=== PATIENT | male | born 1975 | race African-American/Black ===

== ENCOUNTER 2024-12-26 01:21 | Emergency (ER) | payer MEDICAID, SELFPAY ==
--- NOTE | 2024-12-26 01:55 | XR_ITS ---
Examination: Testicular sonography complete Technique: Grayscale sonographic images testes, assessment arterial inflow venous outflow Doppler spectral analysis carful analysis Exam date and time: December 26, 2024 0304 hrs. Indications: Palpable lump in the testicles beginning 3 days ago history bilateral testicular swelling Findings: Right testis 3.5 cm Epididymis 1.3 cm Arterial flow testicle. No testicular mass Mild hydrocele Left testis 4.0 cm Epididymis 1.4 cm Arterial flow to the testicle. 5 mm left epididymal cyst. No testicular mass Mild hydrocele Impression: No testicular torsion or testicular mass Small benign left epididymal cyst Bilateral mild hydroceles
--- NOTE | 2024-12-26 01:56 | PD.EDRME ---
Rapid Medical Screening Exam RME Arrival date/time: 12/26/24 01:21 49-year-old male past medical history of scrotal abscess presents emergency department complaining of pain and edema to scrotum that started 2 days ago. Patient reports sees urologist outpatient and is always prescribed Levaquin. Chief Complaint: Skin/Abscess/Foreign Body Time Seen by Provider: 12/26/24 01:22 Vital signs reviewed by provider: Yes
[2024-12-26 02:00] VITALS: BP 130/89; PULSE 106; RESP 18; TEMP 36.6; O2SAT 96
[2024-12-26 02:25] LABS: Basophils % (Auto) 0 % (0-2.5); Eosinophils # (Auto) 0.1 Thou/mm3 (0.0-0.5); Eosinophils % (Auto) 1 % (0-10); Hematocrit 45.1 % (41.0-53.0); Hemoglobin 15.6 g/dL (13.5-16.0); Immature Granulocytes % (Auto) 0 % (0-0); Immature Granulocytes Auto 0.05 Thou/mm3 (0.00-0.00); Lymphocytes # (Auto) 2.2 Thou/mm3 (1.0-4.8); Lymphocytes % (Auto) 15 % (10-50); Mean Corpuscular HGB Conc 34.6 g/dl (31.0-37.0); Mean Corpuscular Hemoglobin 32.9 pg (25.0-35.0); Mean Corpuscular Volume 95 fL (80-100); Monocytes % (Auto) 7 % (0-12); Neutrophils # (Auto) 11.3 Thou/mm3 (1.8-7.7); Neutrophils % (Auto) 77 % (37-80); Nucleated Red Blood Cell % 0 /100 WBC (0); Platelet Count 173 Thou/mm3 (140-440); RDW Standard Deviation 46.5 fL (35.1-43.9); Red Blood Count 4.74 Miln/mm3 (4.50-5.90); White Blood Count 14.7 Thou/mm3 (3.8-10.6)
[2024-12-26 02:34] LABS: Collection Type, Urine Clean Catch
[2024-12-26 02:52] LABS: Bacteria,Urine Rare; Bilirubin,Urine Negative (Negative); Blood,Urine Negative (Negative); Clarity,Urine Clear (Clear/Hazy); Color,Urine Yellow (Lt Yel-Yel); Glucose, Urine Negative (Negative); Hyaline Casts,Urine < 1 /hpf (0-1); Ketones,Urine Trace (Negative); Leukocyte Esterase,Urine Positive (Negative); Nitrite,Urine Negative (Negative); Protein,Urine Trace (Neg - Trace); RBC,Urine 4 /hpf (0-3); Specific Gravity,Urine 1.033 (1.001-1.035); Squamous Epithelial Cell,Urine 2 /hpf (0-5); Urobilinogen,Urine Negative mg/dL (0.0-1.0); WBC,Urine 41 /hpf (0-5)
[2024-12-26 02:53] LABS: Culture Indicated,Urine Yes
[2024-12-26 03:12] LABS: Alanine Aminotransferase 17 U/L (10-49); Albumin, Serum 4.3 gm/dL (3.5-5.0); Albumin/Globulin Ratio 1.3 (1.2-2.2); Alkaline Phosphatase 97 U/L (46-116); Anion Gap 6 (7-16); Aspartate Amino Transferase 20 U/L (0-34); BUN/Creatinine Ratio 13 Ratio (12-20); Bilirubin,Total 0.9 mg/dL (0.3-1.2); Blood Urea Nitrogen 16 mg/dL (9-23); Calcium 9.8 mg/dL (8.3-10.6); Calcium (Corrected) 9.8 mg/dL (8.5-10.1); Chloride 104 mMol/L (98-107); Creatinine (Component) 1.2 mg/dL (0.6-1.3); Globulin 3.4 gm/dL (2.3-3.5); Glucose 107 mg/dL (74-106); Osmolality,Calculated 275 (275-295); Potassium 3.8 mMol/L (3.4-5.1); Sodium 137 mMol/L (136-145); Total Protein 7.7 gm/dL (5.7-8.2); eGFR > 60 See Note
[2024-12-26 03:19] LABS: Procalcitonin 0.09 ng/ml (0.0-0.49)
--- NOTE | 2024-12-26 03:29 | PC.NURSE ---
Pt to room 7 at this time from lobby; assumed care of pt.
--- NOTE | 2024-12-26 03:32 | PC.NURSE ---
Dr. Meek at the bedside.
--- NOTE | 2024-12-26 03:43 | PD.EDSKIN ---
ED Skin Abcess FB-RME/HPI General Chief complaint: Skin/Abscess/Foreign Body Stated complaint: POSSIBLE ABSCESS Time Seen by Provider: 12/26/24 01:22 Arrival date/time: 12/26/24 01:21 RME / HPI RME / HPI narrative: 12/26/24 01:21 49-year-old male past medical history of scrotal abscess presents emergency department complaining of pain and edema to scrotum that started 2 days ago. Patient reports sees urologist outpatient and is always prescribed Levaquin. Dr. Meek?s Main ED Evaluation: 49yo male presents to the ED for complaints of pain and swelling to his scrotum. Patient states he started having pain to his scrotum yesterday, reporting when he woke up today, he noticed swelling to his testicular area, so he came in for evaluation. Patient currently rates his pain an 8 out of 10 in severity. Patient states he has a history of scrotal abscesses in the past and is always prescribed Levaquin. He denies any fever, chills or any other associated symptoms. Related Data Previous Rx's ?Medication ?Instructions ?Recorded acetaminophen 300 mg-codeine 30 mg 1 tab PO BID PRN pain #10 tabs 10/11/23 tablet amoxicillin 500 mg-potassium 1 tab PO BID #14 tabs 10/11/23 clavulanate 125 mg tablet (Augmentin) clindamycin HCl 300 mg capsule 300 mg PO TID #14 caps 10/11/23 hydrocodone 5 mg-acetaminophen 325 1 tab PO Q6H PRN pain #14 tabs 03/02/24 mg tablet hydrocodone 5 mg-acetaminophen 325 1 tab PO Q6H PRN pain #14 tabs 03/02/24 mg tablet hydrocodone 5 mg-acetaminophen 325 1 tab PO TID PRN Pain, Moderate 03/02/24 mg tablet #14 tabs ibuprofen 600 mg tablet 600 mg PO Q6H PRN pain #30 tabs 03/02/24 hydrocodone 5 mg-acetaminophen 325 1 tab PO Q6H PRN pain #14 tabs 12/26/24 mg tablet ibuprofen 600 mg tablet 600 mg PO Q6H PRN pain 5 days #20 12/26/24 tabs levofloxacin 750 mg tablet 750 mg PO QDAY Cellulitis 10 days 12/26/24 #10 tabs Allergies Allergy/AdvReac Type Severity Reaction Status Date / Time No Known Allergies Allergy Verified 12/26/24 01:36 Review of Systems Review of Systems Systems Reviewed: All systems reviewed, normal except as documented Past Medical History Past Medical History NEUROLOGIC: Positive Cerebrovascular Accident and Transient Ischemic Attacks (TIA); Negative Neurological Disorders or Seizures CARDIAC: Negative Cardiac Disorders or Congestive Heart Failure RESPIRATORY: Positive Asthma; Negative Chronic Obstructive Pulmonary Disease (COPD) GASTROINTESTINAL: Positive Gastrointestinal Disorders and Gall Bladder Disease GENITOURINARY: Negative Genitourinary Disorders or Renal Disease MUSCULOSKELETAL: Negative Musculoskeletal Disorders ENDOCRINE: Negative Endocrine Disorders, Diabetes Mellitus Type 1 or Diabetes Mellitus Type 2 HEMATOLOGIC: Negative Blood Disorders or Sickle Cell Disease OTHER HISTORY: Negative Hospitalization, Falls, Blood Transfusions, Blood Transfusion Reaction, Anesthesia Reactions or Cancer Surgical History SURGICAL: Negative Ear Surgery, Abdominal Surgery or Nephrectomy Social History SMOKING STATUS: Current every day smoker SECOND HAND EXPOSURE: No SUBSTANCE USE: marijuana ED Exam Narrative Physical exam: GENERAL APPEARANCE: alert and oriented x 4, well-developed, well-nourished, no acute distress VITALS: All vitals were reviewed and the pulse ox is 96% on room air, which is normal according to my interpretation. HEENT: Normocephalic, atraumatic; pupils equal, round, reactive to light; EOMI; mucous membranes pink, moist; oropharynx clear NECK: Supple LUNGS: CTABL; no wheezes, no rales, no rhonchi HEART: Regular rate, regular rhythm; normal S1, S2; no murmurs ABDOMEN: non distended; normal BS; soft, no tenderness, no guarding, no rebound; no masses, no organomegaly, no hernia BACK: no CVA tenderness : Cigar Patcher present. 3-4 cm area that is firm, tender, and hot to touch midline near the perineum without any open wounds or drainage. There is no swelling, tenderness or redness at the perineum. EXTREMITIES: atraumatic; no edema NEUROLOGIC: awake; alert and oriented x4; cranial nerves II-XII grossly intact; no focal sensory or motor deficits PSYCHIATRIC: appropriate mood and affect SKIN: warm, dry, normal color; no rashes Course Quality Measures none Orders Category Date Time Status US scrotum Stat Exams 12/26/24 01:55 Taken CBC Stat Lab 12/26/24 02:03 Completed CMP [Comprehensive Metabolic Panel] Stat Lab 12/26/24 02:03 Completed Lactate (Lactic Acid) Stat Lab 12/26/24 02:03 Completed Procalcitonin Stat Lab 12/26/24 02:03 Completed Urinalysis, C/S if Indicated Stat Lab 12/26/24 02:28 Completed Urine Culture Stat Lab 12/26/24 02:28 Received Acetaminophen Tab [Tylenol Tab] Med 12/26/24 03:45 Discontinued 325 mg PO X1 ONE Ibuprofen Tab [Motrin Tab] Med 12/26/24 03:44 Discontinued 600 mg PO X1 ONE Levofloxacin [Levaquin] Med 12/26/24 03:43 Discontinued 500 mg PO X1 ONE oxyCODONE/APAP 5/325 [Percocet 5/325] Med 12/26/24 03:44 Discontinued 2 tab PO X1 ONE Vital Signs Vital signs: Vital Signs Temperature 97.8 F 12/26/24 02:00 Pulse Rate 106 H 12/26/24 02:00 Respiratory Rate 18 12/26/24 02:00 Blood Pressure 130/89 H 12/26/24 02:00 Pulse Oximetry (%) 96 12/26/24 02:00 Skin / Abscess / Foreign Body MDM Narrative MDM Narrative:: Scribe Attestation: 12/26/24 - Dari Moody am scribing for and in the presence of Dr. Meek. Patient data External records reviewed:: [facility] previous records (Per chart review, patient was seen here on 03/02/24 for pain in the scrotum.) Clinical information provided by:: patient Social determinants that could affect healthcare access:: none Patient has the following chronic illnesses:: none How is presenting disease/condition affected by chronic disease/condition?: no chronic disease Evaluation data The following diagnostics were reviewed and interpreted by me:: lab results and radiology exam(s) Lab and/or radiology exams considered but not ordered:: none Interpretation Summary: WBC count is elevated at 14.7, CMP is normal, Lactic Acid is normal, Procalcitonin is normal, UA is unremarkable, according to my interpretation. ------- Telerad Preliminary Report Draft Patient: JAMAR VARGAS [facility]. Record#: [id number] Birthdate: 1975 Age/Sex: 49 / M Location: [facility] Attending Dr: Ordering Physician: Date of Service: Procedure(s): Accession Number(s): cc: ~ Ultrasound of the scrotum with doppler and wave doppler spectral analysis. December 26, 2024 0304 hours Clinical history: Rule out abscess Comparison: None available at the time of this report. Technique: Real-time ultrasound was performed using Duplex scanning including arterial inflow, venous outflow, color and spectral Doppler analysis of both testes. Findings: Right: The right testicle measures 3.5 x 1.5 x 3.5 cm and demonstrates normal echogenicity and Doppler flow signal. The right epididymis measures 1.3 x 0.8 x 1.0 cm. There is a mild hydrocele. Left: The left testicle measures 4.0 x 1.8 x 2.8 cm and demonstrates normal echogenicity and Doppler flow signal. The left epididymis measures 1.3 x 1.4 x 0.7 cm small simple epididymal cyst measuring 0.5 cm. There is a mild hydrocele. Impression: 1. No evidence of testicular torsion or epididymitis. 2. Mild bilateral hydrocele. Report Electronically Signed By: Salomón Santacruz 12/26/2024 4:39:30 AM Medications / Prescriptions Medications or Prescriptions considered but not ordered:: none Medication administrations:: Medication Administration History Discontinued Medications Acetaminophen (Acetaminophen 325 Mg Tablet) 325 mg PO X1 ONE Stop: 12/26/24 03:46 Last Admin: 12/26/24 04:03 Dose: 325 mg Documented By: RENEE Ibuprofen (Ibuprofen Tab 600 Mg Tablet) 600 mg PO X1 ONE Stop: 12/26/24 03:45 Last Admin: 12/26/24 04:03 Dose: 600 mg Documented By: EF Levofloxacin (Levofloxacin 250 Mg Tablet) 500 mg PO X1 ONE Stop: 12/26/24 03:44 Last Admin: 12/26/24 04:03 Dose: 500 mg Documented By: EF Oxycodone/Acetaminophen (Oxycodone/Apap 5/325 Tablet) 2 tab PO X1 ONE Stop: 12/26/24 03:45 Last Admin: 12/26/24 04:03 Dose: 2 tab Documented By: EF see above Consultations Consultation(s) initiated? (list below): No Diagnosis Skin/Abscess Differential Diagnosis: cellulitis and other (hydrocele, abscess) Most likely diagnosis given after review of the tests above:: see below Admission Indicated Admission indicated?: not indicated Admission Request Was there a request for admission?: No Disposition Plan Disposition Plan: Discharge Discharge Attestation Discharge Attestation: The patient and all family members were given an opportunity to ask questions and understood the discharge instructions. Discharge instructions specifically effects, indications for sooner follow up or return to the emergency department, and the expected course of current diagnosis. Patient condition: Stable Discharge Plan Plan Patient Disposition: HOME (Self Care) Disposition Comment: Stable for discharge Patient condition on transfer: Stable Prescriptions/Referrals Prescriptions/Med Rec: New levofloxacin 750 mg tablet 750 mg PO QDAY 10 Days Qty: 10 0RF hydrocodone-acetaminophen 5-325 mg tablet 1 tab PO Q6H MDD 4 tabs PRN (Reason: pain) Qty: 14 0RF ibuprofen 600 mg tablet 600 mg PO Q6H PRN (Reason: pain) 5 Days Qty: 20 0RF No Action clindamycin HCl 300 mg capsule 300 mg PO TID Qty: 14 0RF amoxicillin-pot clavulanate [Augmentin] 500-125 mg tablet 1 tab PO BID Qty: 14 0RF acetaminophen-codeine 300-30 mg tablet 1 tab PO BID PRN (Reason: pain) Qty: 10 0RF ibuprofen 600 mg tablet 600 mg PO Q6H PRN (Reason: pain) Qty: 30 0RF hydrocodone-acetaminophen 5-325 mg tablet 1 tab PO Q6H MDD 4 PRN (Reason: pain) Qty: 14 0RF hydrocodone-acetaminophen 5-325 mg tablet 1 tab PO Q6H MDD 4 PRN (Reason: pain) Qty: 14 0RF hydrocodone-acetaminophen 5-325 mg tablet 1 tab PO TID MDD 10 PRN (Reason: Pain, Moderate) Qty: 14 0RF Referrals: Florentino Shah MD [Primary Care Provider] - In 1 week Problem List Clinical Impression: Cellulitis Patient/Caregiver Discharge Instructions Discharge Activity: activity as tolerated Education Materials: ED Cellulitis Additional Instructions: It is very important that if you feel you are getting worse in any way, if the area gets more tender, painful or gets more swollen that you return to the emergency department right away. Otherwise you should follow-up with your primary care doctor within the next several days. There are several medications waiting for you at your pharmacy. One of them is an antibiotic called Levaquin or levofloxacin. Take 1 tab of these per day for 10 days please. You should continue to take these antibiotics until they are completely gone even if you get better before the 10 days. There will be a pain medication called hydrocodone. You should not drive after taking hydrocodone. Print Language: Palauan Stand Alone Forms: [employer] Award Info., Patient Portal Info Letter
[2024-12-26 03:49] VITALS: BMI 29.8
[2024-12-26] MEDS: IBUPROFEN TAB 600 MG TABLET PO (04:03)
[2024-12-26] MEDS: ACETAMINOPHEN 325 MG TABLET PO (04:03)
[2024-12-26] MEDS: LEVOFLOXACIN 250 MG TABLET 500 MG PO (04:03)
[2024-12-26] MEDS: oxyCODONE/APAP 5/325 TABLET 2 TAB PO (04:03)
[2024-12-26 04:07] VITALS: BP 121/84; PULSE 84; RESP 16; TEMP 36.6; O2SAT 96
--- NOTE | 2024-12-26 04:40 | PRELIM_ITS ---
Ultrasound of the scrotum with doppler and wave doppler spectral analysis. December 26, 2024 0304 hours Clinical history: Rule out abscess Comparison: None available at the time of this report. Technique: Real-time ultrasound was performed using Duplex scanning including arterial inflow, venous outflow, color and spectral Doppler analysis of both testes. Findings: Right: The right testicle measures 3.5 x 1.5 x 3.5 cm and demonstrates normal echogenicity and Doppler flow signal. The right epididymis measures 1.3 x 0.8 x 1.0 cm. There is a mild hydrocele. Left: The left testicle measures 4.0 x 1.8 x 2.8 cm and demonstrates normal echogenicity and Doppler flow signal. The left epididymis measures 1.3 x 1.4 x 0.7 cm small simple epididymal cyst measuring 0.5 cm. There is a mild hydrocele. Impression: 1. No evidence of testicular torsion or epididymitis. 2. Mild bilateral hydrocele. Report Electronically Signed By: Salomón Santacruz 12/26/2024 4:39:30 AM [EST]
== END 2024-12-26 04:13 | disposition home or self-care (01) ==
PROVIDERS: Emergency Provider Emergency Medicine; PCP Family Medicine
DX: N49.2 Inflammatory disorders of scrotum (principal)
CPT/HCPCS: 36415; 76870; 80053; 81001; 83605; 84145; 85025; 87086; 99284; A9270

== ENCOUNTER 2024-12-27 23:47 | Emergency (ER) | payer MEDICAID, SELFPAY ==
[2024-12-27 23:48] VITALS: BMI 29.8
[2024-12-28] VITALS (9 sets, daily range): BP systolic 117–158; BP diastolic 72–105; PULSE 65–97; RESP 16–19; TEMP 36.5–37.4; O2SAT 96–100
--- NOTE | 2024-12-28 00:49 | PD.EDRME ---
Rapid Medical Screening Exam RME Arrival date/time: 12/27/24 23:47 49-year-old male presents emergency department complaining of abscess to scrotum. Patient reports was seen recently and discharged on antibiotics per reports scrotum has increased in size and in pain. Chief Complaint: Urogenital-Male Time Seen by Provider: 12/28/24 00:16 Vital signs: Vital Signs Temperature 97.7 F 12/28/24 00:37 Pulse Rate 92 12/28/24 00:37 Respiratory Rate 17 12/28/24 00:37 Blood Pressure 144/90 H 12/28/24 00:37 Pulse Oximetry (%) 98 12/28/24 00:37 Oxygen Delivery Method Room Air 12/28/24 00:37 Vital signs reviewed by provider: Yes
[2024-12-28 01:04] LABS: Lactate (Lactic Acid) 1.1 mMol/L (0.4-2.0)
[2024-12-28 01:16] LABS: Basophils % (Auto) 0 % (0-2.5); Eosinophils # (Auto) 0.1 Thou/mm3 (0.0-0.5); Eosinophils % (Auto) 1 % (0-10); Hematocrit 41.8 % (41.0-53.0); Hemoglobin 14.4 g/dL (13.5-16.0); Immature Granulocytes % (Auto) 1 % (0-0); Immature Granulocytes Auto 0.07 Thou/mm3 (0.00-0.00); Lymphocytes # (Auto) 2.1 Thou/mm3 (1.0-4.8); Lymphocytes % (Auto) 13 % (10-50); Mean Corpuscular HGB Conc 34.4 g/dl (31.0-37.0); Mean Corpuscular Hemoglobin 32.3 pg (25.0-35.0); Mean Corpuscular Volume 94 fL (80-100); Monocytes # (Auto) 0.9 Thou/mm3 (0.0-0.8); Monocytes % (Auto) 6 % (0-12); Neutrophils # (Auto) 12.2 Thou/mm3 (1.8-7.7); Neutrophils % (Auto) 79 % (37-80); Nucleated Red Blood Cell % 0 /100 WBC (0); Platelet Count 198 Thou/mm3 (140-440); Red Blood Count 4.46 Miln/mm3 (4.50-5.90); White Blood Count 15.3 Thou/mm3 (3.8-10.6)
[2024-12-28 01:33] LABS: Alanine Aminotransferase 14 U/L (10-49); Albumin/Globulin Ratio 1.2 (1.2-2.2); Alkaline Phosphatase 87 U/L (46-116); Anion Gap 5 (7-16); Aspartate Amino Transferase 15 U/L (0-34); BUN/Creatinine Ratio 9 Ratio (12-20); Bilirubin,Total 0.4 mg/dL (0.3-1.2); Blood Urea Nitrogen 11 mg/dL (9-23); Calcium 9.7 mg/dL (8.3-10.6); Calcium (Corrected) 9.7 mg/dL (8.5-10.1); Carbon Dioxide 25.8 mMol/L (20.0-31.0); Chloride 110 mMol/L (98-107); Creatinine (Component) 1.2 mg/dL (0.6-1.3); Estimated Creatinine Clearance 87.8 mL/min (>60); Globulin 3.3 gm/dL (2.3-3.5); Glucose 100 mg/dL (74-106); Osmolality,Calculated 280 (275-295); Potassium 3.8 mMol/L (3.4-5.1); Procalcitonin 0.07 ng/ml (0.0-0.49); Sodium 141 mMol/L (136-145); Total Protein 7.3 gm/dL (5.7-8.2); eGFR > 60 See Note
--- NOTE | 2024-12-28 02:15 | PD.EDMALE ---
ED Male Genitalurinary RME/HPI General Chief complaint: Urogenital-Male Stated complaint: TESTICLE ASBCESS Time Seen by Provider: 12/28/24 00:16 Arrival date/time: 12/27/24 23:47 RME / HPI RME / HPI Narrative: 12/27/24 23:47 49-year-old male presents emergency department complaining of abscess to scrotum. Patient reports was seen recently and discharged on antibiotics per reports scrotum has increased in size and in pain. ------ Dr. Meek?s Main ED Evaluation: 49yo male presents to the ED for worsening scrotal abscess. Patient was seen here 2 days for the same complaint, reporting he's been applying hot compresses, as well as taking his [place], Ibuprofen, and antibiotics as prescribed without any alleviation of symptoms, so he came back in for further evaluation. Patient states his abscess is now moving up towards his testicles. He denies any fever, chills or any other associated symptoms. No known allergies. Related Data Previous Rx's ?Medication ?Instructions ?Recorded acetaminophen 300 mg-codeine 30 mg 1 tab PO BID PRN pain #10 tabs 10/11/23 tablet amoxicillin 500 mg-potassium 1 tab PO BID #14 tabs 10/11/23 clavulanate 125 mg tablet (Augmentin) clindamycin HCl 300 mg capsule 300 mg PO TID #14 caps 10/11/23 hydrocodone 5 mg-acetaminophen 325 1 tab PO Q6H PRN pain #14 tabs 03/02/24 mg tablet hydrocodone 5 mg-acetaminophen 325 1 tab PO Q6H PRN pain #14 tabs 03/02/24 mg tablet hydrocodone 5 mg-acetaminophen 325 1 tab PO TID PRN Pain, Moderate 03/02/24 mg tablet #14 tabs ibuprofen 600 mg tablet 600 mg PO Q6H PRN pain #30 tabs 03/02/24 hydrocodone 5 mg-acetaminophen 325 1 tab PO Q6H PRN pain #14 tabs 12/26/24 mg tablet ibuprofen 600 mg tablet 600 mg PO Q6H PRN pain 5 days #20 12/26/24 tabs levofloxacin 750 mg tablet 750 mg PO QDAY Cellulitis 10 days 12/26/24 #10 tabs Allergies Allergy/AdvReac Type Severity Reaction Status Date / Time No Known Allergies Allergy Verified 12/26/24 01:36 Review of Systems Review of Systems Systems Reviewed: All systems reviewed, normal except as documented Past Medical History Past Medical History NEUROLOGIC: Positive Cerebrovascular Accident and Transient Ischemic Attacks (TIA); Negative Neurological Disorders or Seizures CARDIAC: Negative Cardiac Disorders or Congestive Heart Failure RESPIRATORY: Positive Asthma; Negative Chronic Obstructive Pulmonary Disease (COPD) GASTROINTESTINAL: Positive Gastrointestinal Disorders and Gall Bladder Disease GENITOURINARY: Negative Genitourinary Disorders or Renal Disease MUSCULOSKELETAL: Negative Musculoskeletal Disorders ENDOCRINE: Negative Endocrine Disorders, Diabetes Mellitus Type 1 or Diabetes Mellitus Type 2 HEMATOLOGIC: Negative Blood Disorders or Sickle Cell Disease OTHER HISTORY: Negative Hospitalization, Falls, Blood Transfusions, Blood Transfusion Reaction, Anesthesia Reactions or Cancer Surgical History SURGICAL: Negative Ear Surgery, Abdominal Surgery or Nephrectomy Social History SMOKING STATUS: Former smoker SECOND HAND EXPOSURE: No SUBSTANCE USE: marijuana ED Exam Narrative Physical exam: GENERAL APPEARANCE: alert and oriented x 4, well-developed, well-nourished, no acute distress VITALS: All vitals were reviewed and the pulse ox is 98% on room air, which is normal according to my interpretation. 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 There's entire scrotal swelling with erythema and exquisite tenderness to palpation. EXTREMITIES: atraumatic; no edema NEUROLOGIC: awake; alert and oriented x4; cranial nerves II-XII grossly intact; no focal sensory or motor deficits PSYCHIATRIC: appropriate mood and affect SKIN: warm, dry, normal color; no rashes Course Quality Measures none Orders Category Date Time Status Bedside COVID-19 Antigen Test NOW Care 12/28/24 04:44 Completed Bedside Influenza A&B Antigen Test NOW Care 12/28/24 04:[address] Screening NOW Care 12/28/24 02:16 Completed Insert IV NOW Care 12/28/24 00:49 Completed Diet Regular Diet 12/28/[address] pelvis w con Stat Exams 12/28/24 02:16 Completed CBC Stat Lab 12/28/24 00:55 Completed CMP [Comprehensive Metabolic Panel] Stat Lab 12/28/24 00:55 Completed Lactic Acid [Lactate (Lactic Acid)] Stat Lab 12/28/24 00:55 Completed Procalcitonin Stat Lab 12/28/24 00:55 Completed Urinalysis, C/S if Indicated Stat Lab 12/28/24 05:00 Completed Doxycycline Inj [Vibramycin Inj] 100 mg Med 12/28/24 02:20 Discontinued Sodium Chloride 0.9% 250 ml [Ns] 250 ml IV X1 HYDROmorphone INJ [Dilaudid Inj] Med 12/28/24 03:45 Discontinued 1 mg IVP Q30MIN PRN HYDROmorphone INJ [Dilaudid Inj] Med 12/28/24 02:20 Discontinued 1 mg IVP X1 ONE Morphine Inj Med 12/28/24 12:44 Discontinued 6 mg IVP X1 ONE Morphine Inj Med 12/28/24 11:03 Discontinued 8 mg IVP X1 ONE Morphine Inj Med 12/28/24 15:50 Discontinued 8 mg IVP X1 ONE Ondansetron Inj [Zofran Inj] Med 12/28/24 02:20 Discontinued 4 mg IV X1 ONE Piper/Tazo 3.375 gm Premix [Zosyn premix] 50 ml Med 12/28/24 02:23 Discontinued IV X1 Vital Signs Vital signs: Vital Signs Temperature 97.7 F 12/28/24 00:37 Pulse Rate 92 12/28/24 00:37 Respiratory Rate 17 12/28/24 00:37 Blood Pressure 144/90 H 12/28/24 00:37 Pulse Oximetry (%) 98 12/28/24 00:37 Oxygen Delivery Method Room Air 12/28/24 00:37 Urogenital - Male MDM Narrative MDM Narrative:: 0443: Spoke with [facility]'s transfer center. Awaiting callback on whether or not they accept the patient for transfer. Scribe Attestation: 12/28/24 Dari Steinberg am scribing for and in the presence of Dr. Meek. Patient data External records reviewed:: [facility] previous records (Per chart review, patient was seen here on 12/26/24 for cellulitis.) Clinical information provided by:: patient Social determinants that could affect healthcare access:: none Patient has the following chronic illnesses:: none How is presenting disease/condition affected by chronic disease/condition?: no chronic disease Evaluation data The following diagnostics were reviewed and interpreted by me:: lab results and radiology exam(s) Lab and/or radiology exams considered but not ordered:: none Interpretation Summary: WBC count is elevated at 15.3 (which is higher compared to 2 days ago), CMP is normal, Lactic Acid is normal, Procalcitonin is normal, according to my interpretation. ------- Telerad Preliminary Report Draft Patient: JAMAR VARGAS. Record#: [id number] Birthdate: 1975 Age/Sex: 49 / M Location: [facility] Attending Dr: Ordering Physician: Date of Service: Procedure(s): Accession Number(s): cc: ~ CT scan of the pelvis with intravenous contrast (axial sections with sagittal and coronal reformats) December 28, 2024 at 0243 hours Clinical History: Scrotal swelling/pain. Comparison: CT of October 13, 2023. Findings: No evidence of bowel obstruction. The urinary bladder is nondistended, limited evaluation. The prostate is normal in size and outline. There is no free fluid or free air. No evidence of significant lymphadenopathy. The distal abdominal aorta and IVC are unremarkable. The osseous structures appear unremarkable. Midline scrotal abscess at the base of the penis measuring 2.9 x 4.5 x 4.6 cm. Scrotal edema. Pelvic phleboliths. Impression: Midline scrotal abscess at the base of the penis. Surgical consult should be considered. Discussion Details: Results verbally communicated to : Dr Meek at 03:49 AM 12/28/2024 Report Electronically Signed By: Salomón Santacruz 12/28/2024 4:05:23 AM [EST] Medications / Prescriptions Medications or Prescriptions considered but not ordered:: none Medication administrations:: Medication Administration History Discontinued Medications Hydromorphone HCl (Hydromorphone Inj 2 Mg/Ml Vial) 1 mg IVP X1 ONE Stop: 12/28/24 02:21 Last Admin: 12/28/24 02:29 Dose: 1 mg Documented By: EF Hydromorphone HCl (Hydromorphone Inj 2 Mg/Ml Vial) 1 mg IVP Q30MIN PRN PRN Reason: PAIN Last Admin: 12/28/24 22:59 Dose: 1 mg Documented By: Admin: 12/28/24 20:15 Dose: 1 mg Documented By: Admin: 12/28/24 18:31 Dose: 1 mg Documented By: Admin: 12/28/24 16:56 Dose: 1 mg Documented By: Admin: 12/28/24 09:28 Dose: 1 mg Documented By: Admin: 12/28/24 08:21 Dose: 1 mg Documented By: SL Admin: 12/28/24 04:54 Dose: 1 mg Documented By: EF Piperacillin/Tazobactam/Dextrose (Zosyn) 50 mls @ 100 mls/hr IV X1 ONE Stop: 12/28/24 02:52 Last Infusion: 12/28/24 03:15 Dose: Infused Documented By: Admin: 12/28/24 02:29 Dose: 100 mls/hr Documented By: EF Doxycycline Hyclate 100 mg/ (Sodium Chloride) 250 mls @ 125 mls/hr IV X1 ONE Stop: 12/28/24 04:19 Last Infusion: 12/28/24 05:59 Dose: Infused Documented By: Admin: 12/28/24 03:28 Dose: 125 mls/hr Documented By: EF Morphine Sulfate (Morphine Sulf Inj 10 Mg/Ml Vial) 8 mg IVP X1 ONE Stop: 12/28/24 11:04 Last Admin: 12/28/24 11:23 Dose: 8 mg Documented By: VG Morphine Sulfate (Morphine Sulf Inj 10 Mg/Ml Vial) 6 mg IVP X1 ONE Stop: 12/28/24 12:45 Last Admin: 12/28/24 12:52 Dose: 6 mg Documented By: VG Morphine Sulfate (Morphine Sulf Inj 10 Mg/Ml Vial) 8 mg IVP X1 ONE Stop: 12/28/24 15:51 Last Admin: 12/28/24 15:56 Dose: 8 mg Documented By: VG Ondansetron HCl (Ondansetron Inj 2 Mg/Ml Inj 2 Ml) 4 mg IV X1 ONE; Protocol Stop: 12/28/24 02:21 Last Admin: 12/28/24 02:28 Dose: 4 mg Documented By: EF see above Consultations Consultation(s) initiated? (list below): Yes Consultation #1 (Physician, Specialty, Details): See MDM narrative. Diagnosis Urogenital Male Differential Diagnosis: other (cellulitis, abscess, hydrocele) Most likely diagnosis given after review of the tests above:: scrotal abscess Admission Indicated Admission indicated?: not indicated Explain why admission is indicated or not indicated:: Patient requires transfer to a higher [id number]. Admission Request Was there a request for admission?: No Disposition Plan Disposition Plan: other (specify) (Signed out to Dr. Radford at 0600 pending callback from [facility].) Discharge Plan Plan Patient Disposition: [facility] Facility Pt Being Transferred to: [facility] Service Needed for Transfer: Urology Prescriptions/Referrals Prescriptions/Med Rec: No Action clindamycin HCl 300 mg capsule 300 mg PO TID Qty: 14 0RF amoxicillin-pot clavulanate [Augmentin] 500-125 mg tablet 1 tab PO BID Qty: 14 0RF acetaminophen-codeine 300-30 mg tablet 1 tab PO BID PRN (Reason: pain) Qty: 10 0RF ibuprofen 600 mg tablet 600 mg PO Q6H PRN (Reason: pain) Qty: 30 0RF hydrocodone-acetaminophen 5-325 mg tablet 1 tab PO Q6H MDD 4 PRN (Reason: pain) Qty: 14 0RF hydrocodone-acetaminophen 5-325 mg tablet 1 tab PO Q6H MDD 4 PRN (Reason: pain) Qty: 14 0RF hydrocodone-acetaminophen 5-325 mg tablet 1 tab PO TID MDD 10 PRN (Reason: Pain, Moderate) Qty: 14 0RF levofloxacin 750 mg tablet 750 mg PO QDAY 10 Days Qty: 10 0RF hydrocodone-acetaminophen 5-325 mg tablet 1 tab PO Q6H MDD 4 tabs PRN (Reason: pain) Qty: 14 0RF ibuprofen 600 mg tablet 600 mg PO Q6H PRN (Reason: pain) 5 Days Qty: 20 0RF Referrals: Florentino Shah MD [Primary Care Provider] - In 1 week Problem List Clinical Impression: Abscess of scrotum Patient/Caregiver Discharge Instructions Print Language: Brazilian Stand Alone Forms: Vielka Award Info., Patient Portal Info Letter
--- NOTE | 2024-12-28 02:16 | XR_ITS ---
Examination: CT pelvis with intravenous contrast. 2-D sagittal and coronal reconstructions. Date and time of exam:December 28, 2024 at 0243 hrs. Indications: Scrotal swelling and pain, diagnosis Charis gangrene, beginning 3 days ago CTDI: vol (mGy) :11.91 DLP: (mGycm) : 555 Technique: Multiple 3 mm axial sections of the pelvis have been obtained with the 64 slice high resolution scanner. 2-D sagittal and coronal reconstructions. Low dose protocols were performed. One or more of the following dose reduction techniques were used; automated exposure control, adjustment of the mA and/or KV according to patient size, use of iterative reconstruction technique. Findings: Normal appendix No bowel obstruction No diverticulitis No prostatomegaly Small fat-containing inguinal hernias Abscess midline at the base of the penis measuring 3 x 4.4 x 4.6 cm Scrotal wall thickening Impression: Scrotal abscess at the base of the penis midline, 3.0 x 4.4 x 4.6 cm
[2024-12-28] MEDS: ONDANSETRON INJ 2 MG/ML INJ 2 ML 4 MG IV (02:28)
[2024-12-28] MEDS: HYDROmorphone INJ 2 MG/ML VIAL 1 MG IVP ×8 (02:29→22:59)
[2024-12-28] MEDS: PIPER/TAZO 3.375 GM 50 ML IV (02:29)
[2024-12-28] MEDS: DOXYCYCLINE INJ 100 MG in SODIUM CHLORIDE 0.9% 250 ML 250 ML 125 MG IV (03:28)
--- NOTE | 2024-12-28 04:06 | PRELIM_ITS ---
CT scan of the pelvis with intravenous contrast (axial sections with sagittal and coronal reformats) December 28, 2024 at 0243 hours Clinical History: Scrotal swelling/pain. Comparison: CT of October 13, 2023. Findings: No evidence of bowel obstruction. The urinary bladder is nondistended, limited evaluation. The prostate is normal in size and outline. There is no free fluid or free air. No evidence of significant lymphadenopathy. The distal abdominal aorta and IVC are unremarkable. The osseous structures appear unremarkable. Midline scrotal abscess at the base of the penis measuring 2.9 x 4.5 x 4.6 cm. Scrotal edema. Pelvic phleboliths. Impression: Midline scrotal abscess at the base of the penis. Surgical consult should be considered. Discussion Details: Results verbally communicated to : Dr Meek at 03:49 AM 12/28/2024 Report Electronically Signed By: Salomón Santacruz 12/28/2024 4:05:23 AM [EST]
[2024-12-28 05:06] LABS: Collection Type, Urine Clean Catch
[2024-12-28 05:16] LABS: Bilirubin,Urine Negative (Negative); Blood,Urine Negative (Negative); Clarity,Urine Clear (Clear/Hazy); Color,Urine Yellow (Lt Yel-Yel); Culture Indicated,Urine Not Indicated; Glucose, Urine Negative (Negative); Ketones,Urine 1+ (Negative); Leukocyte Esterase,Urine Positive (Negative); Nitrite,Urine Negative (Negative); PH,Urine 6.5 (5.0-7.0); Protein,Urine 1+ (Neg - Trace); RBC,Urine 3 /hpf (0-3); Squamous Epithelial Cell,Urine 3 /hpf (0-5); Urobilinogen,Urine Negative mg/dL (0.0-1.0); WBC,Urine 10 /hpf (0-5)
--- NOTE | 2024-12-28 05:57 | PC.NURSE ---
3466 [facility] CONTACTED T SENT.
--- NOTE | 2024-12-28 07:34 | PC.CC ---
Addendum entered by Marquez Navarro RN 12/28/24 18:15: 1810 called ED, spoke to Ada and gave accepting information. Addendum entered by Marquez Nvaarro RN 12/28/24 18:08: 1800 received call from Breann at [facility] that pt is accepted for ED to ED transfer. Accepting Dr. is Dr. Claudio. Call report at [phone]. Addendum entered by Marquez Navarro RN 12/28/24 14:30: 1430 images pushed over to [facility] via [employer]. Addendum entered by Marquez Navarro RN 12/28/24 14:28: 1428 clinicals faxed to [facility]. Addendum entered by Marquez Navarro RN 12/28/24 14:27: 1425 Due to working on high volume of inpatient and ED transfers, unable to work on it until now. Addendum entered by Marquez Navarro RN 12/28/24 10:42: [address] Radford that pt had the same issue in the past and got I&D at [facility] multiple times and they are familiar with the pt. He stated to give an hour to his scribe so they can addendum the notes. Original Note: 0905 clinicals sent to [facility]. 9613 received call from ED charge nurse that pt needs to be transferred for urology services for scrotal swelling.
--- NOTE | 2024-12-28 08:00 | PC.NURSE ---
[facility] STATES THEY ARE AT [place] [facility]
--- NOTE | 2024-12-28 09:42 | PD.EDADDENDU ---
Emergency Room Addendum Addendum Narrative: 0600: Care assumed from Dr. Meek, the previous shift emergency physician. Past medical, surgical, social and family history reviewed. Vitals and home medications reviewed. I will assume the care of the patient at this time, pending transfer for urology services. Please refer to the emergency department record for history and examination from initial visit.? 49 year old male presents to the Emergency Department with complaint of recurrent scrotal abscess. Patient states that for the last 4 years he had 8 episodes of this scrotal abscess in the same location; from those 2 drained spontaneously and 5 required I&D. Patient had 4 of those treated at the [facility] by Dr. Hodge, retired urologist now; patient has no urologist now. Patient now comes with 2 days of pain and swelling to his scrotum area, in the same area as previous abscess. Physical exam by me shows patient has an old vertical scar along the bottom of the scrotum about 3-5 cm with fluctuates. No tenderness in to the perineum. 1740: I spoke to the transfer nurse at [facility] and they will call back. 1800: Patient was signed out to Dr. Meek. Past medical, surgical, social and family history reviewed. Vitals and home medications reviewed. Results and treatment plan discussed. They will assume the care of the patient at this time and will follow the patient, pending transfer the patient for urology.
[2024-12-28] MEDS: MORPHINE SULF INJ 10 MG/ML VIAL 8 MG IVP ×2 (11:23→15:56)
[2024-12-28] MEDS: MORPHINE SULF INJ 10 MG/ML VIAL 6 MG IVP (12:52)
--- NOTE | 2024-12-28 13:08 | PC.NURSE ---
Transfer Requests: [facility] - spoke with Marialuisa regarding request for transfer. Clinical packet requested and will be faxed.
--- NOTE | 2024-12-28 13:40 | PC.NURSE ---
[facility] TRANSFER NURSE STATES THEY DONT HAVE NO UROLOGY SERVICES
--- NOTE | 2024-12-28 17:23 | PC.NURSE ---
I SPOKE WITH RY FROM THE [facility] AND THEY ARE AT [facility] RIGHT NOW.
--- NOTE | 2024-12-28 17:27 | PC.NURSE ---
I FAXED OVER A PT FS TO THE [facility] AT THIS TIME.
--- NOTE | 2024-12-28 18:02 | EDNOTE_ITS ---
Emergency Room Addendum Addendum Narrative: 1800: Care assumed from Dr. Radford, the previous shift emergency physician. Past medical, surgical, social and family history reviewed. Vitals and home medications reviewed. Results and treatment plan discussed. I will assume the care of the patient at this time and will follow the patient, pending transfer for urology. Please refer to the emergency department record for history and examination from initial visit. 1817: Dr. Claudio, urologist from [facility], accepts the patient for transfer.
--- NOTE | 2024-12-28 18:09 | PC.NURSE ---
RENETTA RN IS ON THE PHONE WITH THE [facility] NURSE AT THIS TIME.
== END 2024-12-28 23:44 | disposition short-term general hospital (02) ==
PROVIDERS: Emergency Provider Emergency Medicine; PCP Family Medicine
DX: N49.2 Inflammatory disorders of scrotum (principal)
CPT/HCPCS: 36415; 72193; 80053; 81001; 83605; 84145; 85025; 87400; 87811; 96365; 96366; 96367; 96375; 96376; 99285; A4649; J2270; J2405; J2543; J3490; J7050; Q9967

== ENCOUNTER → 2025-01-13 | Outpatient (CLI) | payer MEDICAID, SELFPAY | END | disposition home or self-care (01) | LOC: SWHD 12:52 | PROVIDERS: PCP Family Medicine; Referring Provider Family Medicine; Visit Provider Physician Assistant | DX: N49.2 Inflammatory disorders of scrotum (principal); S31.30XA Unspecified open wound of scrotum and testes, initial encounter; X58.XXXA Exposure to other specified factors, initial encounter; Z87.891 Personal history of nicotine dependence | CPT/HCPCS: 99213; A9270; G0463 ==

== ENCOUNTER → 2025-01-20 | Outpatient (CLI) | payer MEDICAID, SELFPAY | END | disposition home or self-care (01) | LOC: SWHD 14:18 | PROVIDERS: PCP Physician Assistant; Referring Provider Physician Assistant; Visit Provider Student in an Organized Health Care Education/Training Program | DX: N49.2 Inflammatory disorders of scrotum (principal); S31.30XA Unspecified open wound of scrotum and testes, initial encounter; X58.XXXA Exposure to other specified factors, initial encounter; Z87.891 Personal history of nicotine dependence | CPT/HCPCS: 99213; A9270; G0463 ==

== ENCOUNTER → 2025-01-27 | Outpatient (CLI) | payer MEDICAID, SELFPAY | END | disposition home or self-care (01) | LOC: SWHD 14:17 | PROVIDERS: PCP Physician Assistant; Referring Provider Physician Assistant; Visit Provider Surgery | DX: N49.2 Inflammatory disorders of scrotum (principal); S31.30XA Unspecified open wound of scrotum and testes, initial encounter; X58.XXXA Exposure to other specified factors, initial encounter; Z87.891 Personal history of nicotine dependence | CPT/HCPCS: 97597; A9270 ==

== ENCOUNTER → 2025-02-03 | Outpatient (CLI) | payer MEDICAID, SELFPAY | END | disposition home or self-care (01) | LOC: SWHD 14:27 | PROVIDERS: PCP Physician Assistant; Referring Provider Physician Assistant; Visit Provider Surgery | DX: N49.2 Inflammatory disorders of scrotum (principal); S31.30XA Unspecified open wound of scrotum and testes, initial encounter; X58.XXXA Exposure to other specified factors, initial encounter; Z87.891 Personal history of nicotine dependence | CPT/HCPCS: 99213; A9270; G0463 ==

== ENCOUNTER 2025-04-04 15:51 | Emergency (ER) | payer MEDICAID, SELFPAY ==
[2025-04-04 15:51] VITALS: BMI 29.4
[2025-04-04 16:10] VITALS: BP 128/86; PULSE 76; RESP 18; TEMP 36.8; O2SAT 98
--- NOTE | 2025-04-04 16:17 | XR_ITS ---
Examination: CT brain head without contrast. 2-D sagittal coronal reconstructions Date and time of exam:April 04, 2025 1620 hours INDICATIONS: Onset dizziness today CTDI: vol (mGy):50.6 DLP: (mGycm):1141 Technique: Multiple CT axial sections of the brain have been obtained, 5 mm slice thickness. Contrast has not been administered. 2-D sagittal, coronal reconstructions have been obtained Low dose protocols were performed. One or more of the following dose reduction techniques were used; automated exposure control, adjustment of the mA and/or KV according to patient size, use of iterative reconstruction technique. Findings: No significant ventricular enlargement. Intra-axial or extra-axial hemorrhage density is not seen. No mass effect or midline shift Basal cisterns are not remarkable. Fourth ventricle is midline. Cranial vault intact. Impression: Negative for acute hemorrhage, mass effect or midline shift Advise clinical correlation and follow-up accordingly
--- NOTE | 2025-04-04 16:17 | EKG_ITS ---
[facility] Test Date: 2025-04-04 Pat Name: JAMAR VARGAS Department: Room: - Gender: Male Client Care Coordinator: : 1975 Requested By: Aron Díaz Order Number: [id number] Reading MD: Aron Díaz Measurements Intervals [place] Rate: 56 P: 38 [place]: 175 QRS: 24 QRSD: 98 T: 48 QT: 394 QTc: 383 Interpretive Statements SINUS BRADYCARDIA Compared to ECG 05/03/2018 01:08:08 No significant changes /store/S0/[id number]/[id number].pdf
--- NOTE | 2025-04-04 16:30 | PD.EDRME ---
Rapid Medical Screening Exam RME Arrival date/time: 04/04/25 15:51 50-year-old male with no known medical history presents to the emergency room with a chief complaint of dizziness, lightheadedness, ear ringing x 2 day I have greeted and performed a focused initial assessment of this patient. A comprehensive ED assessment and evaluation of the patient, analysis of all test results, and completion of the medical decision making process will be conducted by additional ED providers. Chief Complaint: Headache Time Seen by Provider: 04/04/25 16:03 Vital signs: Vital Signs Temperature 98.2 F 04/04/25 16:10 Pulse Rate 76 04/04/25 16:10 Respiratory Rate 18 04/04/25 16:10 Blood Pressure 128/86 H 04/04/25 16:10 Pulse Oximetry (%) 98 04/04/25 16:10 Oxygen Delivery Method Room Air 04/04/25 16:10 Vital signs reviewed by provider: Yes
[2025-04-04 16:45] LABS: Basophils % (Auto) 1 % (0-2.5); Eosinophils # (Auto) 0.1 Thou/mm3 (0.0-0.5); Eosinophils % (Auto) 2 % (0-10); Hemoglobin 15.3 g/dL (13.5-16.0); Immature Granulocytes % (Auto) 0 % (0-0); Immature Granulocytes Auto 0.01 Thou/mm3 (0.00-0.00); Lymphocytes # (Auto) 2.8 Thou/mm3 (1.0-4.8); Lymphocytes % (Auto) 42 % (10-50); Mean Corpuscular HGB Conc 34.8 g/dl (31.0-37.0); Mean Corpuscular Volume 92 fL (80-100); Monocytes # (Auto) 0.4 Thou/mm3 (0.0-0.8); Monocytes % (Auto) 6 % (0-12); Neutrophils # (Auto) 3.4 Thou/mm3 (1.8-7.7); Neutrophils % (Auto) 50 % (37-80); Nucleated Red Blood Cell % 0 /100 WBC (0); Platelet Count 193 Thou/mm3 (140-440); RDW Standard Deviation 43.5 fL (35.1-43.9); Red Blood Count 4.78 Miln/mm3 (4.50-5.90); White Blood Count 6.8 Thou/mm3 (3.8-10.6)
[2025-04-04] MEDS: MECLIZINE HCL 25 MG TABLET 50 MG PO (16:51)
[2025-04-04 16:53] LABS: Collection Type, Urine Clean Catch
[2025-04-04 17:02] LABS: B-Type Natriuretic Peptide < 20 pg/mL (0-100)
[2025-04-04 17:04] LABS: Alanine Aminotransferase 16 U/L (10-49); Albumin, Serum 4.2 gm/dL (3.5-5.0); Albumin/Globulin Ratio 1.5 (1.2-2.2); Alkaline Phosphatase 90 U/L (46-116); Anion Gap 7 (7-16); Aspartate Amino Transferase 20 U/L (0-34); BUN/Creatinine Ratio 9 Ratio (12-20); Bilirubin,Total 0.5 mg/dL (0.3-1.2); Blood Urea Nitrogen 12 mg/dL (9-23); Carbon Dioxide 26.8 mMol/L (20.0-31.0); Chloride 107 mMol/L (98-107); Creatinine (Component) 1.3 mg/dL (0.6-1.3); Estimated Creatinine Clearance 79.6 mL/min (>60); Globulin 2.8 gm/dL (2.3-3.5); Glucose 112 mg/dL (74-106); Osmolality,Calculated 281 (275-295); Sodium 141 mMol/L (136-145); Troponin I < 0.002 ng/mL (0.0-0.045); eGFR > 60 See Note
[2025-04-04 17:06] LABS: Bacteria,Urine 2+; Bilirubin,Urine Negative (Negative); Blood,Urine 3+ (Negative); Color,Urine Yellow (Lt Yel-Yel); Glucose, Urine Negative (Negative); Ketones,Urine Trace (Negative); Leukocyte Esterase,Urine Positive (Negative); Nitrite,Urine Positive (Negative); Protein,Urine 2+ (Neg - Trace); RBC,Urine 190 /hpf (0-3); Specific Gravity,Urine 1.033 (1.001-1.035); Squamous Epithelial Cell,Urine < 1 /hpf (0-5); Urobilinogen,Urine Negative mg/dL (0.0-1.0); WBC,Urine 146 /hpf (0-5)
[2025-04-04 17:09] LABS: Amphetamine/Methamp Scrn,U Negative (Negative); Barbiturate Screen,Urine Negative (Negative); Benzodiazepines Screen,Urine Negative (Negative); Benzoylecgonine Screen, Ur Negative (Negative); Fentanyl Screen,Urine Negative (Negative); Opiate Screen,Urine Negative (Negative); THC Screen,Urine Positive (Negative)
[2025-04-04 17:13] LABS: Clarity,Urine Hazy (Clear/Hazy)
--- NOTE | 2025-04-04 18:52 | EDNOTE_ITS ---
ED Headache RME/HPI General Chief Complaint: Headache Stated Complaint: HEADACHE X2 DAYS Time Seen by Provider: 04/04/25 16:03 Arrival date/time: 04/04/25 15:51 This is a case of 50-year-old male with no medical history came in in the emergency room due to headache frontal in character with dizziness and lighthe adedness patient verbalized some ringing in the ear and RME but when I asked patient denies denies ear pain patient states that the headache is more on the frontal area but no blurring of vision no numbness no weakness no tingling sensation no chest pain no shortness of breath Limitations: no limitations RME / HPI RME / HPI Narrative: 04/04/25 15:51 50-year-old male with no known medical history presents to the emergency room with a chief complaint of dizziness, lightheadedness, ear ringing x 2 day I have greeted and performed a focused initial assessment of this patient. A comprehensive ED assessment and evaluation of the patient, analysis of all test results, and completion of the medical decision making process will be conducted by additional ED providers. Related Data Previous Rx's ?Medication ?Instructions ?Recorded acetaminophen 300 mg-codeine 30 mg 1 tab PO BID PRN pa in #10 tabs 10/11/23 tablet amoxicillin 500 mg-potassium 1 tab PO BID #14 tabs 01/29 clavulanate 125 mg tablet (Augmentin) clindamycin HCl 300 mg capsule 300 mg PO TID #14 caps 10/11/23 hydrocodone 5 mg-acetaminophen 325 1 tab PO Q6H PRN pa in #14 tabs 03/02/24 mg tablet hydrocodone 5 mg-acetaminophen 325 1 tab PO Q6H PRN pa in #14 tabs 03/02/24 mg tablet hydrocodone 5 mg-acetaminophen 325 1 tab PO TID PRN Pa in, Moderate 03/02/24 mg tablet #14 tabs ibuprofen 600 mg tablet 600 mg PO Q6H PRN pain #30 t abs 03/02/24 hydrocodone 5 mg-acetaminophen 325 1 tab PO Q6H PRN pa in #14 tabs 12/26/24 mg tablet cephalexin 500 mg capsule 500 mg PO QID #40 caps 04/04 ondansetron 4 mg disintegrating 4 mg PO Q8H PRN nausea and 05/27/25 tablet vomiting #20 tabs tramadol 50 mg tablet 50 mg PO Q8H PRN headache #1 4 tabs 04/04/25 Allergies Allergy/AdvReac Type Severity Reaction Status Date / Time No Known Allergies Allergy Verified 12/26/24 01:36 Review of Systems Review of Systems Systems Reviewed: All systems reviewed, normal except as documented Constitutional Constitutional: Reports system reviewed and no additional complaints, except as documented, Reports as per HPI, Denies chills, Denies fever(s), Denies frequent falls and Reports headache(s) Eyes Eyes: Reports system reviewed and no additional complaints, except as documented, Denies blurry vision, Denies change in vision, Denies decreased night vision, Denies diplopia and Denies eye discharge ENT Ears, Nose, Mouth, and Throat: Reports system reviewed and no additional complaints, except as documented, Reports as per HPI, Denies abnormal hearing, D enies disequilibrium, Reports dizziness, Denies ear discharge, Denies otalgia, Denies epistaxis, Denies facial pain and Reports headache(s) Cardiovascular Cardiovascular: Reports system reviewed and no additional complaints, except as documented, Reports as per HPI and Denies chest pain Respiratory Respiratory: Reports system reviewed and no additional complaints, except as documented and Reports as per HPI Gastrointestinal Gastrointestinal: Reports system reviewed and no additional complaints, except as documented and Reports as per HPI Musculoskeletal Musculoskeletal: Reports system reviewed and no additional complaints, except as documented and Reports as per HPI Neurologic Neurologic: Reports system reviewed and no additional complaints, except as documented, Reports as per HPI, Denies abnormal hearing, Denies abnormal movements, Denies abnormal speech, Denies behavioral changes, Denies burning sensations, Denies convulsions, Denies disequilibrium, Reports dizziness, Denies localized weakness, Denies frequent falls and Reports headache(s) Psychiatric Psychiatric: Denies behavioral changes Past Medical History Past Medical History NEUROLOGIC: Positive Cerebrovascular Accident and Transient Ischemic Attacks (TIA); Negative Neurological Disorders or Seizures CARDIAC: Negative Cardiac Disorders or Congestive Heart Failure RESPIRATORY: Positive Asthma; Negative Chronic Obstructive Pulmonary Disease (COPD) GASTROINTESTINAL: Positive Gastrointestinal Disorders and Gall Bladder Disease GENITOURINARY: Negative Genitourinary Disorders or Renal Disease MUSCULOSKELETAL: Negative Musculoskeletal Disorders ENDOCRINE: Negative Endocrine Disorders, Diabetes Mellitus Type 1 or Diabetes Mellitus Type 2 HEMATOLOGIC: Negative Blood Disorders or Sickle Cell Disease OTHER HISTORY: Negative Hospitalization, Falls, Blood Transfusions, Blood Transfusion Reaction, Anesthesia Reactions or Cancer Surgical History SURGICAL: Negative Ear Surgery, Abdominal Surgery or Nephrectomy Social History SMOKING STATUS: Former smoker SECOND HAND EXPOSURE: No SUBSTANCE USE: marijuana ED Exam General Limitations: Present no limitations General appearance: Present alert and in no apparent distress; Absent appears intoxicated, anxious or lethargic Head Head exam: Present atraumatic, normocephalic and normal inspection Eye Eye exam: Present normal appearance, PERRL, EOMI and other (No pappiledema); Absent nystagmus, periorbital swelling or periorbital tenderness ENT ENT exam: Present normal exam, normal oropharynx and mucous membranes moist Neck Neck exam: Present normal inspection, full ROM and trachea midline; Absent tenderness or meningismus Chest Chest inspection: Present normal inspection and symmetric chest wall rise; Absent tenderness or rash Respiratory Respiratory exam: Present normal lung sounds bilaterally; Absent respiratory distress, wheezes, stridor, accessory muscle use or prolonged expiratory phase Cardiovascular Cardiovascular exam: Present regular rate, normal rhythm and normal heart sounds; Absent bradycardia, tachycardia, irregular rhythm, systolic murmur or diastolic murmur Abdominal Exam Abdominal exam: Present soft and normal bowel sounds; Absent distention, tenderness, guarding, rebound or rigidity Extremities Exam Extremities exam: Present normal inspection, full ROM and normal capillary refill; Absent tenderness, pedal edema or calf tenderness Back Exam Back exam: Present normal inspection and full ROM Neurological Exam Neurological exam: Present alert, oriented X3, CN II-XII intact, normal gait and reflexes normal; Absent motor sensory deficit Expanded Neurological Exam Cranial nerves: Normal: EOM function (II, III, IV, ), facial sensation (V), facial palsy (VII), gag reflex (IX), spinal accessory function (XI) and tongue deviation (XII) Cerebellar function: Normal: finger to nose and heel to cao Cerebellar function: Present normal gait Motor strength - LUE: 5/5 Motor strength - RUE: 5/5 Motor strength - LLE: 5/5 Motor strength - RLE: 5/5 Upper motor neuron exam: Normal: khadijah neglect, Babinski sign and sensory extinction Sensory exam upper extremity: Normal: light touch, pin prick, temperature and 2 point discrimination Sensory exam lower extremity: Normal: light touch, pin prick and temperature DTR: 4+: biceps (L), biceps (R), triceps (L), triceps (R), patellar (L), patellar (R), Achilles tendon (L) and Achilles tendon (R) Psychiatric Psychiatric exam: Present normal affect and normal mood Skin Skin exam: Present warm, dry, intact and normal color Course Quality Measures none Orders Category Date Time Status EKG (ED ONLY) *Do not use* NOW Care 04/04/25 16:[address] head/brain wo con Stat Exams 04/04/25 16:17 Completed EKG (ED Only) Stat Exams 04/04/25 16:17 Draft BNP [B-Type Natriuretic Peptide] Stat Lab 04/04/25 16:35 Completed CBC Stat Lab 04/04/25 16:35 Completed Comprehensive Metabolic Panel Stat Lab 04/04/25 16:35 Completed Drug Screen,Urine Stat Lab 04/04/25 16:40 Completed Troponin I Stat Lab 04/04/25 16:35 Completed Urinalysis Stat Lab 04/04/25 16:40 Completed Urine Culture Stat Lab 04/04/25 16:40 Received Ketorolac Inj [Toradol Inj] Med 04/04/25 18:47 Discontinued 30 mg IVP X1 ONE Meclizine HCl [Antivert] Med 04/04/25 16:16 Discontinued 50 mg PO X1 ONE Sodium Chloride 0.9% 1000 ml [Ns] 1,000 ml Med 04/04/25 18:48 Active IV 999 mls/hr cefTRIAXone/D5w 1gm IV premix [Rocephin/D5w 1gm IV Med 04/04/25 18:48 Active premix] 1 gm in 50 ml IV X1 Vital Signs Vital signs: Vital Signs Temperature 98.2 F 04/04/25 16:10 Pulse Rate 76 04/04/25 16:10 Respiratory Rate 18 04/04/25 16:10 Blood Pressure 128/86 H 04/04/25 16:10 Pulse Oximetry (%) 98 04/04/25 16:10 Oxygen Delivery Method Room Air 04/04/25 16:10 Oxygen saturation 98% room air WNL Headache MDM Narrative MDM Narrative:: This is a case of 50-year-old male with no medical history came in in the emergency room due to headache frontal in character with dizziness and lightheadedness patient verbalized some ringing in the ear and RME but when I asked patient denies denies ear pain patient states that the headache is more on the frontal area but no blurring of vision no numbness no weakness no tingling sensation no chest pain no shortness of breath Physical examination patient is awake alert oriented not in distress nontoxic looking well-hydrated well-nourished no signs and symptoms of sepsis bacteremia patient neck exam negative for meningeal sign no signs and symptoms of CVA or TIA Vital signs stable BP stable not tachycardic not tachypneic afebrile not hypoxic lungs sound is clear no crackles no rales no retraction no stridor heart normal rate regular rhythm no murmur neurological exam is normal awake alert oriented x 4 no focal visit no slurring of speech CN II to XII is normal steady gait negative Romberg motor sensory reflexes were normal Blood test showed no leukocytosis no anemia kidney and liver function is normal no electrolyte imbalance CT scan showed unremarkable patient urinalysis showed positive nitrite positive blood and positive WBC does patient will be also treated for urinary tract infection Patient was given a bolus of normal saline and ceftriaxone IV and Toradol IV patient was reassessed after 30 minutes pain was resolved patient verbalized improvement of the symptoms neurological exam is normal and unremarkable Patient will be discharged home in stable condition patient was advised to follow-up with the primary care physician to see neurologist if there is a persistent headache increase water intake keep hydrated and finish the course of antibiotic Patient understand the discharge instruction and agreed with the treatment Patient was discharged with comfortable condition walking with stable gait. Patient verbalized no further complains explained diagnosis and answered patient question. Patient is comfortable with the proposed management plan including the need to follow up with his/her primary care physician and any specialist if applicable Discussed patient for any urgent condition or worsening sx, He/She needed to go to emergency room immediately or call 911. Patient acknowledge the responsibility to follow up as instructed and to monitor her/his symptoms. For any persistence of the symptoms for more than 3-5 days return precaution advised. Discussed the result of the test and was given printed discharge instruction Patient data External records reviewed:: [facility] previous records Clinical information provided by:: patient and family Social determinants that could affect healthcare access:: none Patient has the following chronic illnesses:: None How is presenting disease/condition affected by chronic disease/condition?: no chronic disease Evaluation data The following diagnostics were reviewed and interpreted by me:: lab results and radiology exam(s) Lab and/or radiology exams considered but not ordered:: Reviewed Interpretation Summary: None Medications / Prescriptions Medications or Prescriptions considered but not ordered:: Reviewed Medication administrations:: Medication Administration History Sodium Chloride (Ns) 1,000 mls @ 999 mls/hr IV .Q1H1M ONE Stop: 04/04/25 19:48 Ceftriaxone Sodium/Dextrose (Rocephin/D5w 1gm Iv Premix) 1 gm in 50 mls @ 100 mls/hr IV X1 ONE Stop: 04/04/25 19:17 Discontinued Medications Ketorolac Tromethamine (Ketorolac Inj 30 Mg/Ml Vial) 30 mg IVP X1 ONE Stop: 04/04/25 18:48 Meclizine HCl (Meclizine Hcl 25 Mg Tablet) 50 mg PO X1 ONE Stop: 04/04/25 16:17 Last Admin: 04/04/25 16:51 Dose: 50 mg Documented By: KF Given Consultations Consultation(s) initiated? (list below): No Diagnosis Differential diagnosis headache: migraine, tension headache, headache and sinusitis Most likely diagnosis given after review of the tests above:: Tension headache Admission Indicated Admission indicated?: not indicated Explain why admission is indicated or not indicated:: Not indicated Admission Request Was there a request for admission?: No Admission Attestation Admission request attestation: Not indicated Disposition Plan Disposition Plan: Discharge Discharge Attestation Discharge Attestation: The patient and all family members were given an opportunity to ask questions and understood the discharge instructions. Discharge instructions specifically effects, indications for sooner follow up or return to the emergency department, and the expected course of current diagnosis. Patient condition: Stable Discharge Plan Plan Patient Disposition: HOME (Self Care) Patient condition on transfer: Stable Prescriptions/Referrals Prescriptions/Med Rec: New cephalexin 500 mg capsule 500 mg PO QID Qty: 40 0RF tramadol 50 mg tablet 50 mg PO Q8H PRN (Reason: headache) Qty: 14 0RF ondansetron 4 mg tablet,disintegrating 4 mg PO Q8H PRN (Reason: nausea and vomiting) Qty: 20 0RF No Action clindamycin HCl 300 mg capsule 300 mg PO TID Qty: 14 0RF amoxicillin-pot clavulanate [Augmentin] 500-125 mg tablet 1 tab PO BID Qty: 14 0RF acetaminophen-codeine 300-30 mg tablet 1 tab PO BID PRN (Reason: pain) Qty: 10 0RF ibuprofen 600 mg tablet 600 mg PO Q6H PRN (Reason: pain) Qty: 30 0RF hydrocodone-acetaminophen 5-325 mg tablet 1 tab PO Q6H MDD 4 PRN (Reason: pain) Qty: 14 0RF hydrocodone-acetaminophen 5-325 mg tablet 1 tab PO Q6H MDD 4 PRN (Reason: pain) Qty: 14 0RF hydrocodone-acetaminophen 5-325 mg tablet 1 tab PO TID MDD 10 PRN (Reason: Pain, Moderate) Qty: 14 0RF hydrocodone-acetaminophen 5-325 mg tablet 1 tab PO Q6H MDD 4 tabs PRN (Reason: pain) Qty: 14 0RF Referrals: Florentino Shah MD [Primary Care Provider] - In 1 week Problem List Clinical Impression: Headache, Urinary tract infection Patient/Caregiver Discharge Instructions Education Materials: Understanding Urinary Tract ..., Self-Care for Headaches Additional Instructions: Follow-up with your primary care physician in 2 days for reevaluation and to be referred to neurologist for headache increase water intake keep hydrated take your medication and finish the course of antibiotic for any recurrence worsening symptoms or any emergent concern return in the emergency room immediately or call 911 Print Language: Slovenian Stand Alone Forms: Vielka Award Info., Patient Portal Info Letter PA/MARKETING ASSISTANT Supervising Physician PA/HERB Supervising Physician: dr [email or web address]
== END 2025-04-04 22:30 | disposition home or self-care (01) ==
PROVIDERS: Nurse Practitioner Family; Emergency Provider Emergency Medicine; PCP Family Medicine
DX: R51.9 Headache, unspecified (principal); N39.0 Urinary tract infection, site not specified; R42 Dizziness and giddiness
CPT/HCPCS: 36415; 70450; 80053; 80307; 81001; 83880; 84484; 85025; 87077; 87086; 87186; 93005; 99284; A9270